=== PATIENT | female | born 1945 | race Caucasian/White ===

== ENCOUNTER 2023-06-15 14:31 | Outpatient (OUT) | payer MEDICARE, SELFPAY ==
[2023-06-15 15:07] LABS: Basophils Percent Auto 0.6 % (0.2-2.0); Eosinophils Absolute Auto 0.2 10^3/uL (0.0-0.7); Eosinophils Percent Auto 2.8 % (0.9-7.0); Hematocrit 40.3 % (36.0-48.0); Hemoglobin 13.2 g/dL (12.0-16.0); Immature Granulocytes Abs Auto 0.02 10^3/uL (0.00-0.03); Immature Granulocytes Pct Auto 0.4 % (0.0-0.5); Lymphocytes Absolute Auto 1.2 10^3/uL (1.2-3.8); Lymphocytes Percent Auto 23.1 % (20.5-60.0); Mean Corpuscular HGB Conc 32.8 g/dL (29.9-35.2); Mean Corpuscular Volume 82.4 fL (81.0-99.0); Mean Platelet Volume 10.7 fL (9.5-13.5); Monocytes Absolute Auto 0.5 10^3/uL (0.3-0.8); Monocytes Percent Auto 8.6 % (1.7-12.0); Neutrophils Absolute Auto 3.5 10^3/uL (1.4-6.5); Neutrophils Percent Auto 64.5 % (43.0-75.0); Platelet Count 260 10^3/uL (150-450); Red Blood Count 4.89 10^6/uL (4.20-5.40); Red Cell Distribution Width 13.8 % (11.0-15.0); White Blood Count 5.4 10^3/uL (4.0-11.0)
[2023-06-15 15:34] LABS: Alanine Aminotransferase 24 U/L (14-59); Albumin Globulin Ratio 1.2; Albumin Level 4.1 g/dL (3.4-5.0); Alkaline Phosphatase 63 U/L (46-116); Amylase 49 U/L (25-115); Anion Gap 11.1; Aspartate Amino Transferase 16 U/L (15-37); BUN Creatinine Ratio 37.5; Bilirubin Direct 0.1 mg/dL (0.0-0.2); Bilirubin Total 0.3 mg/dL (0.2-1.0); Calcium 9.5 mg/dL (8.5-10.1); Carbon Dioxide 31.9 mmol/L (21.0-32.0); Chloride 103 mmol/L (98-107); Estimated GFR (African America >60 (>=60); Estimated GFR (Non-African Ame >60 (>=60); Globulin 3.5 g/dL; Glucose 86 mg/dL (74-106); Sodium 142 mmol/L (136-145); Thyroid Stimulating Hormone 1.662 uIU/mL (0.358-3.740); Total Protein 7.6 g/dL (6.4-8.2)
== END 2023-06-15 14:32 | disposition home or self-care (01) ==
LOC: LAB 14:38
PROVIDERS: PCP Internal Medicine; Visit Provider General Practice
DX: E66.9 Obesity, unspecified (principal); T88.7XXA Unspecified adverse effect of drug or medicament, initial encounter; Z79.899 Other long term (current) drug therapy
CPT/HCPCS: 36415; 80053; 82150; 82248; 84443; 85025